=== PATIENT | female | born 1970 | race Caucasian/White ===

== ENCOUNTER 2022-03-10 17:34 | Emergency (ER) | payer MEDICAID ==
[~2022-03-10] VITALS: Ht 167.6 cm; Wt 68.0 kg
[2022-03-10] MEDS ORDERED: TETRACAINE 0.5% OPHTH DROPS 4ML BOTHEYE ONE (18:00)
[2022-03-10] MEDS ORDERED: FLUORESCEIN SODIUM 1MG/STRIP BOTHEYE ONE (19:15)
[2022-03-10 20:10] VITALS: BP 112/78
== END 2022-03-10 20:10 | disposition home or self-care (01) ==
LOC: ER 17:34
DX: H57.13 Ocular pain, bilateral (principal)
CPT/HCPCS: 99283